=== PATIENT | female | born 1990 ===

== ENCOUNTER 2017-03-02 12:53 | Emergency (ER) | payer OTHER ==
[2017-03-02 13:06] VITALS: BMI 20.9
[2017-03-02 13:09] VITALS: O2SAT 99
--- NOTE | 2017-03-02 13:24 | ED PDOC ---
Arrival/HPI - General Historian: Patient - General Chief Complaint: Female Genitourinary Time Seen by Provider: 03/02/17 13:17 - History of Present Illness Narrative History of Present Illness (Text): 03/02/17 13:23 26yo female who present with complaint of lower back pain and urinary frequency x 3days. +Hematuria and dysuria. Denies fever, chills, abdominal pain, nausea, vomiting, any other complaint. (Fe Anne A) Past Medical History - Provider Review Nursing Documentation Reviewed: Yes - Travel History If Yes, travel location?: [place] - Past Medical History Past Medical History: No Previous - Psychiatric Hx Depression: No Hx Emotional Abuse: No Hx Physical Abuse: No Hx Substance Use: No - Surgical History Other/Comment: OVARIAN CYST - Suicidal Assessment Feels Threatened In Home Enviroment: No Family/Social History - Physician Review Nursing Documentation Reviewed: Yes Family/Social History: Unknown Family HX Smoking Status: Never Smoked Hx Alcohol Use: No Hx Substance Use: No Hx Substance Use Treatment: No Allergies/Home Meds Allergies/Adverse Reactions: Allergies No Known Allergies Allergy (Verified 03/02/17 13:05) Review of Systems - Physician Review All systems were reviewed & negative as marked: Yes - Review of Systems Constitutional: Normal Eyes: Normal ENT: Normal Respiratory: Normal Cardiovascular: Normal Gastrointestinal: Normal Genitourinary Female: Dysuria, Frequency Musculoskeletal: Back Pain Skin: Normal Neurological: Normal Endocrine: Normal Hemo/Lymphatic: Normal Psychiatric: Normal Physical Exam Vital Signs Reviewed: Yes Temperature: Afebrile Blood Pressure: Normal Pulse: Regular Respiratory Rate: Normal Appearance: Positive for: Well-Appearing, Non-Toxic, Comfortable Pain Distress: None Mental Status: Positive for: Alert and Oriented X 3 - Systems Exam Head: Present: Atraumatic, Normocephalic Pupils: Present: PERRL Extroacular Muscles: Present: EOMI Conjunctiva: Present: Normal Mouth: Present: Moist Mucous Membranes Neck: Present: Normal Range of Motion Respiratory/Chest: Present: Clear to Auscultation, Good Air Exchange. No: Respiratory Distress, Accessory Muscle Use Cardiovascular: Present: Regular Rate and Rhythm, Normal S1, S2. No: Murmurs Abdomen: Present: Tenderness (Suprapubic tenderness), Normal Bowel Sounds. No: Distention, Peritoneal Signs, Rebound, Guarding, McBurney's Point Tender, Rovsing's Sign Present Back: No: CVA Tenderness Upper Extremity: Present: Normal Inspection. No: Cyanosis, Edema Lower Extremity: Present: Normal Inspection. No: Edema Neurological: Present: GCS=15, CN II-XII Intact, Speech Normal Skin: Present: Warm, Dry, Normal Color. No: Rashes Psychiatric: Present: Alert, Oriented x 3, Normal Insight, Normal Concentration Vital Signs Temp Pulse Resp BP Pulse Ox 03/02/17 13:06 97.9 F 89 16 104/69 99 Medical Decision Making ED Course and Treatment: I was available for consultation during PA evaluation. The chart was reviewed by me, and I agree with disposition. The documented history was done by the physician early childhood associate. The documented physical exam was done by the physician early childhood associate. The documented procedures were done by the physician early childhood associate. (Robert Prado) 03/02/17 14:02 Pt in ED for stated history. Afebrile and have no CVA tenderness. Treated and DC home with keflex for UTI. Advised to drink plenty of fluid. Referred to her PMD. TRT ED for any new or worsening symptoms (Fe Anne) - Lab Interpretations Lab Results: Lab Results 03/02/17 13:20: Urine Color Yellow, Urine Appearance Clear, Urine pH 6.5, Ur Specific [place] 1.015, Urine Protein 30 H, Urine Glucose (UA) Negative, Urine Ketones Negative, Urine Blood Large H, Urine Nitrate Positive H, Urine Bilirubin Negative, Urine Urobilinogen 0.2, Ur Leukocyte Esterase Large H, Urine RBC Pending, Urine WBC Pending - Medication Orders Current Medication Orders: Ibuprofen (Motrin Tab) 600 mg PO STAT STA Stop: 03/02/17 14:02 Nitrofurantoin Macrocrystals (Macrobid) 100 mg PO ONCE STA Stop: 03/02/17 14:01 Disposition/Present on Arrival - Present on Arrival Any Indicators Present on Arrival: No History of DVT/PE: No History of Uncontrolled Diabetes: No Urinary Catheter: No History of Decub. Ulcer: No History Surgical Site Infection Following: None - Disposition Have Diagnosis and Disposition been Completed?: Yes Disposition Time: 14:05 Patient Plan: Discharge - Disposition Diagnosis: Acute urinary tract infection Disposition: HOME/ ROUTINE Condition: STABLE Discharge Instructions (ExitCare): Urinary Tract Infection in Women (ED) Additional Instructions: Take medication as directed Follow up with your doctor Return to ED for any new or worsening symptoms Prescriptions: Nitrofurantoin Macrocrystals [Macrobid] 100 mg PO BID #14 cap Phenazopyridine [Phenazopyridine HCl] 200 mg PO TID #6 tab Referrals: [facility] [place] - Follow up with primary
[2017-03-02 13:50] LABS: PH,URINE 6.5 (4.7-8.0); URINE BILIRUBIN NEGATIVE (NEGATIVE); URINE BLOOD LARGE (NEGATIVE); URINE GLUCOSE (UA) NEGATIVE (NEGATIVE); URINE KETONE NEGATIVE (NEGATIVE); URINE LEUKOCYTE ESTERASE LARGE Leu/uL (NEGATIVE); URINE PROTEIN 30 mg/dL (<30 mg/dL); URINE UROBILINOGEN 0.2 E.U./dL (<1 E.U./dL)
[2017-03-02 13:54] LABS: URINE APPEARANCE CLEAR (CLEAR); URINE COLOR YELLOW (YELLOW)
[2017-03-02 14:06] LABS: URINE EPITHELIAL CELLS MANY /hpf (0-5); URINE RBC 20 - 25 /hpf (0-2); URINE WBC 25 - 30 /hpf (0-6)
[2017-03-02 14:07] LABS: URINE AMORPHOUS SEDIMENT SMALL; URINE BACTERIA MANY (NEG)
[2017-03-02 14:15] VITALS: BP 106/67; PULSE 79; RESP 18; TEMP 98
== END 2017-03-02 14:30 | disposition home or self-care (01) ==
LOC: ED 12:53
DX: N39.0 Urinary tract infection, site not specified (principal)

== ENCOUNTER 2018-04-06 17:02 | Emergency (ER) | payer OTHER ==
[2018-04-06 17:15] VITALS: TEMP 98; BMI 22.1
[2018-04-06] MEDS ORDERED: DiphenhydrAMINE 50 mg/ml Inj IVP STA (17:24)
--- NOTE | 2018-04-06 17:24 | ED PDOC ---
Arrival/HPI - General Time Seen by Provider: 04/06/18 17:22 - History of Present Illness Narrative History of Present Illness (Text): Patient is a 27 y/o F presenting with rash to b/l lower extremities. Patient reports that 3 weeks ago she developed a rash to her b/l lower extremities that seemed like heat rash. She report that over the last 3 weeks the area has become pruritic and the rash dark. Denies exposure to insects. Denies household contacts with similar complaints. Denies any medications. Denies recent uri symptoms. Denies trauma. Past Medical History - Past Medical History Past Medical History: No Previous - Psychiatric Hx Depression: No Hx Emotional Abuse: No Hx Physical Abuse: No Hx Substance Use: No - Surgical History Other/Comment: OVARIAN CYST - Suicidal Assessment Feels Threatened In Home Enviroment: No Family/Social History Family/Social History: No Known Family HX Smoking Status: Never Smoked Hx Alcohol Use: No Hx Substance Use: No Hx Substance Use Treatment: No Allergies/Home Meds Allergies/Adverse Reactions: Allergies No Known Allergies Allergy (Verified 03/02/17 13:05) Physical Exam Vital Signs Temp Pulse Resp BP Pulse Ox 04/06/18 18:50 89 112/70 100 04/06/18 18:46 89 17 112/70 100 04/06/18 17:14 98.0 F 94 H 18 101/69 99 - Systems Exam Head: Present: Atraumatic, Normocephalic Pupils: Present: PERRL Extroacular Muscles: Present: EOMI Conjunctiva: Present: Normal Mouth: Present: Moist Mucous Membranes Pharnyx: Present: Normal. No: ERYTHEMA, EXUDATE Neck: Present: Normal Range of Motion Respiratory/Chest: Present: Clear to Auscultation, Good Air Exchange. No: Respiratory Distress, Accessory Muscle Use Cardiovascular: Present: Peripheal Pulses Present Abdomen: No: Tenderness, Distention, Rebound, Guarding Back: Present: Normal Inspection Upper Extremity: Present: Normal Inspection Lower Extremity: Present: Normal Inspection, Other (discrete areas of non- blanching dark circular lesions to b/l lower extremities. not raised. non- tender. ) Neurological: Present: GCS=15, CN II-XII Intact, Speech Normal Medical Decision Making ED Course and Treatment: 04/06/18 21:40 Coagulation studies, hgb and platelets WNL. No protein in urine. LFTS WNL. Patient instructed to follow-up with dermatology for 3 week history of rash. - Lab Interpretations Lab Results: 04/06/18 17:45 04/06/18 17:45 Lab Results 04/06/18 18:10: Urine Color yellow, Urine Appearance Clear, Urine pH 6.0, Ur Specific [place] 1.025, Urine Protein Negative, Urine Glucose (UA) Negative, Urine Ketones Negative, Urine Blood Negative, Urine Nitrate Negative, Urine Bilirubin Negative, Urine Urobilinogen 0.2, Ur Leukocyte Esterase Trace H, Urine RBC TEST NOT PERFORMED, Urine WBC 2 - 5, Ur Epithelial Cells 4 - 5, Amorphous Sediment Small 04/06/18 17:45: Sodium 145, Potassium 4.5, Chloride 109 H, Carbon Dioxide 24, Anion Gap 17, BUN 12, Creatinine 0.8, Est GFR ( Amer) > 60, Est GFR (Non- Af Amer) > 60, Random Glucose 109, Calcium 9.6, Total Bilirubin 0.3, AST 24, ALT 21, Alkaline Phosphatase 53, Total Protein 7.9, Albumin 4.5, Globulin 3.5, Albumin/Globulin Ratio 1.3 04/06/18 17:45: PT 11.6, INR 1.02, APTT 28.1 04/06/18 17:45: WBC 7.7 D, RBC 4.43, Hgb 11.5 L, Hct 35.7 L, MCV 80.6, MCH 26.0 , MCHC 32.2, RDW 14.8 H, Plt Count 204, MPV 10.4, Gran % 56.0, Lymph % (Auto) 34.1, Cobb % (Auto) 6.6 H, Eos % (Auto) 2.8, Baso % (Auto) 0.5, Gran # 4.33, Lymph # (Auto) 2.6, Cobb # (Auto) 0.5, Eos # (Auto) 0.2, Baso # (Auto) 0.04 - Medication Orders Current Medication Orders: Discontinued Medications Diphenhydramine HCl (Benadryl) 50 mg IVP STAT STA Stop: 04/06/18 17:25 Disposition/Present on Arrival - Present on Arrival Any Indicators Present on Arrival: No History of DVT/PE: No History of Uncontrolled Diabetes: No Urinary Catheter: No History Surgical Site Infection Following: None - Disposition Have Diagnosis and Disposition been Completed?: Yes Diagnosis: Rash Disposition: HOME/ ROUTINE Disposition Time: 18:29 Patient Plan: Discharge Condition: GOOD Discharge Instructions (ExitCare): Skin Rash Additional Instructions: Follow-up with PMD within 2 days. Return to ED if condition worsens. Follow- up with dermatology within 1 week Referrals: Milagro Falcon MD [Staff Provider] - Follow up with primary Forms: [employer] ([place]olan)
[2018-04-06 17:56] LABS: BASO # 0.04 K/mm3 (0.0-2.0); BASO % 0.5 % (0.0-3.0); EOS # 0.2 (0.0-0.7); EOS % 2.8 % (1.5-5.0); GRAN # 4.33 (1.4-6.5); HEMOGLOBIN 11.5 g/dL (12.0-16.0); LYMPH # 2.6 (1.2-3.4); LYMPH % 34.1 % (22.0-35.0); MEAN CELL VOLUME 80.6 fl (80.0-105.0); MEAN CORPUSCULAR HGB CONC 32.2 g/dl (31.0-37.0); MEAN PLATELET VOLUME 10.4 fl (7.0-11.0); MONO # 0.5 (0.1-0.6); MONO % 6.6 % (1.0-6.0); RBC 4.43 10^6/uL (3.5-6.1); RED CELL DISTRIBUTION WIDTH 14.8 % (11.5-14.5); WHITE BLOOD COUNT 7.7 10^3/ul (4.5-11.0)
[2018-04-06 18:10] LABS: ALB/GLOB RATIO 1.3 (1.1-1.8); ALBUMIN 4.5 g/dL (3.0-4.8); ALT/SGPT 21 U/L (7-56); AST/SGOT 24 U/L (14-36); BLOOD UREA NITROGEN 12 mg/dL (7-21); CALCIUM 9.6 mg/dL (8.4-10.5); GFR AFRICAN-AMERICAN > 60; GFR NON-AFRICAN AMERICAN > 60
[2018-04-06 18:11] LABS: INR 1.02 (0.93-1.08); PARTIAL THROMBOPLASTIN TIME 28.1 Seconds (25.1-36.5); PROTHROMBIN TIME 11.6 SECONDS (9.4-12.5)
[2018-04-06 18:27] LABS: URINE APPEARANCE CLEAR (CLEAR); URINE BILIRUBIN NEGATIVE (NEGATIVE); URINE BLOOD NEGATIVE (NEGATIVE); URINE GLUCOSE (UA) NEGATIVE (NEGATIVE); URINE LEUKOCYTE ESTERASE TRACE Leu/uL (NEGATIVE); URINE PROTEIN NEGATIVE mg/dL (<30 mg/dL); URINE UROBILINOGEN 0.2 E.U./dL (<1 E.U./dL)
[2018-04-06 18:28] LABS: URINE AMORPHOUS SEDIMENT SMALL
[2018-04-06 18:49] VITALS: BP 112/70; PULSE 89; RESP 17; O2SAT 100
== END 2018-04-06 18:49 | disposition home or self-care (01) ==
LOC: ED 17:02
DX: R21 Rash and other nonspecific skin eruption (principal)